=== PATIENT | male | born 1980 | race Caucasian/White ===

== ENCOUNTER 2024-09-14 18:16 | Inpatient (IN) | payer OTHER ==
[~2024-09-14] VITALS: Ht 170.2 cm; Wt 85.3 kg
[2024-09-14] MEDS: KETOROLAC 15MG/ML VIAL IM ONE (21:39)
[2024-09-14] MEDS: TETANUS, DIPHTHERIA, PERTUSSIS VAC/PF 0.5ML (>10YR OLD) IM ONE (21:40)
[2024-09-14 23:28] LABS: BASOPHILS % 0.6 % (0.0-2.0); EOSINOPHILS % 1.5 % (0.0-5.0); HEMATOCRIT. 40.7 % (42.0-52.0); HEMOGLOBIN. 13.7 g/dL (14.0-18.0); LYMPHOCYTES % 30.1 % (20.0-50.0); MEAN PLATELET VOLUME 8.4 fl (7.4-10.4); MONOCYTES % 8.6 % (2.0-8.0); NEUTROPHILS % 59.2 % (40.0-76.0); PLATELET 277 x1000/uL (130-400); RED BLOOD CELL COUNT 4.56 mill/uL (4.7-6.1); RED CELL DISTRIBUTION WIDTH 14.5 % (11.6-14.6)
[2024-09-14 23:38] LABS: CREATININE 1.3 mg/dL (0.6-1.3); UREA NITROGEN BLOOD 18.0 mg/dL (9-23)
[2024-09-14] MEDS: CEFAZOLIN 1000MG PREMIX 50 ML IV ONE (23:59)
[2024-09-15 06:33] VITALS: BP 172/103; PULSE 68; RESP 20; TEMP 36.8628
[2024-09-15 08:00] VITALS: BP_SYST 153; BP_SYST 155; BP_DIAS 67; BP_DIAS 91; PULSE 66; PULSE 79; RESP 16; RESP 18; TEMP 36.3; TEMP 36.7; O2SAT 100; O2SAT 98
[2024-09-15] MEDS ORDERED: ZOLPIDEM TARTRATE 5MG TABLET PO PRN (08:30)
[2024-09-15] MEDS ORDERED: ONDANSETRON HCL 4MG/2ML INJ IV PRN (08:30)
[2024-09-15] MEDS ORDERED: HYDROCODONE/ACETAMINOPHEN 5/325MG TABLET PO PRN (08:30)
[2024-09-15] MEDS ORDERED: IPRATROPIUM/ALBUTEROL 0.5-3(2.5)MG/3ML NEB NEB PRN (08:30)
[2024-09-15] MEDS ORDERED: MAGNESIUM/ALUMINUM HYDROXIDE/SIMETHICONE 30ML UDC PO PRN (08:30)
[2024-09-15] MEDS ORDERED: NALOXONE HCL 0.4MG/ML VIAL IV PRN (08:45)
[2024-09-15] MEDS: PANTOPRAZOLE SODIUM 40 MG/VIAL IV SCH (09:23)
[2024-09-15] MEDS: MORPHINE SULFATE 2 MG/ML INJ (NOT FOR IM USE) IV PRN (09:31)
[2024-09-15] MEDS: CEFTRIAXONE 1GM/50ML 50 ML IV SCH (11:53)
[2024-09-15 12:00] VITALS: BP 168/99; PULSE 66; RESP 18; TEMP 37.1; O2SAT 98
[2024-09-15] MEDS ORDERED: CLONIDINE 0.1MG TABLET PO PRN (13:00)
[2024-09-15] MEDS: CLONIDINE 0.1MG TABLET PO PRN (13:28)
[2024-09-15 16:00] VITALS: BP 139/95; PULSE 69; RESP 20; TEMP 36.9; O2SAT 95
[2024-09-15] MEDS: ACETAMINOPHEN 325MG TABLET PO PRN (18:39)
[2024-09-15 20:00] VITALS: BP 158/89; PULSE 57; RESP 20; TEMP 37; O2SAT 98
[2024-09-16] VITALS: BP 152/98; PULSE 68; RESP 17; TEMP 36.5; O2SAT 98
[2024-09-16 04:00] VITALS: BP_SYST 143; BP_SYST 155; BP_DIAS 95; BP_DIAS 97; PULSE 62; PULSE 64; RESP 16; RESP 18; TEMP 36.4; TEMP 36.6; O2SAT 97; O2SAT 98
[2024-09-16 06:55] LABS: BASOPHILS % 0.4 % (0.0-2.0); EOSINOPHILS % 3.1 % (0.0-5.0); HEMATOCRIT. 42.2 % (42.0-52.0); HEMOGLOBIN. 14.3 g/dL (14.0-18.0); LYMPHOCYTES % 28.4 % (20.0-50.0); MEAN PLATELET VOLUME 9.4 fl (7.4-10.4); MONOCYTES % 8.1 % (2.0-8.0); NEUTROPHILS % 60.0 % (40.0-76.0); PLATELET 255 x1000/uL (130-400); RED BLOOD CELL COUNT 4.67 mill/uL (4.7-6.1); RED CELL DISTRIBUTION WIDTH 14.9 % (11.6-14.6)
[2024-09-16 07:17] LABS: CREATININE 0.9 mg/dL (0.6-1.3)
[2024-09-16 07:18] LABS: UREA NITROGEN BLOOD 15 mg/dL (9-23)
[2024-09-16 08:00] VITALS: BP 154/93; PULSE 75; RESP 18; TEMP 36.5; O2SAT 98
[2024-09-16 08:39] LABS: CLARITY URINE CLEAR (CLEAR); COLOR URINE YELLOW (YELLOW); GLUCOSE URINE NEGATIVE (NEGATIVE); KETONES URINE NEGATIVE (NEGATIVE); LEUKOCYTE ESTERASE URINE NEGATIVE (NEGATIVE); NITRITE URINE NEGATIVE (NEGATIVE); OCCULT BLOOD URINE NEGATIVE (NEGATIVE); PH URINE 5.5 (4.5-8.0); PROTEIN URINE TRACE (NEGATIVE); SPECIFIC GRAVITY URINE 1.030 (1.005-1.030); UROBILINOGEN URINE 0.2 E.U./dL (0.2-1.0)
[2024-09-16 08:54] LABS: MUCUS URINE TRACE /lpf (NONE/TRACE)
[2024-09-16 08:56] LABS: *AMPHETAMINES SCREEN URINE NEGATIVE (NEGATIVE)
[2024-09-16 08:57] LABS: *BARBITURATES SCREEN URINE NEGATIVE (NEGATIVE); *BENZODIAZEPINES SCREEN URINE NEGATIVE (NEGATIVE); *COCAINE SCREEN URINE NEGATIVE (NEGATIVE); CANNABINOID URINE SCREEN NEGATIVE (NEGATIVE); ECSTASY MDMA SCREEN URINE NEGATIVE (NEGATIVE); METHADONE URINE SCREEN NEGATIVE (NEGATIVE); OPIATES URINE SCREEN NEGATIVE (NEGATIVE); PHENCYCLIDINE URINE SCREEN NEGATIVE (NEGATIVE)
[2024-09-16 08:58] LABS: SQUAMOUS EPITHELIAL CELL URINE RARE /lpf (RARE/1+)
[2024-09-16 08:59] LABS: BACTERIA URINE TRACE; RBC URINE 0-2 /hpf (0-2)
[2024-09-16] MEDS ORDERED: LIDOCAINE HCL/EPINEPHRINE 1%-EPI 1:100,000 20ML VIAL INFIL SCH (09:00)
[2024-09-16] MEDS: ENOXAPARIN 40MG/0.4ML SYR SUBCUT SCH (10:15)
[2024-09-16] MEDS ORDERED: IBUP-2030 MT (11:20)
[2024-09-16] MEDS ORDERED: CEPH500T MT (11:20)
[2024-09-16 11:49] VITALS: BP 154/93; PULSE 75; TEMP 97.7; O2SAT 98
== END 2024-09-16 16:17 | disposition home or self-care (01) | DRG 563 ==
LOC: ER 18:16 → EDBEDREQ 09-15 04:15 → ENRESERV 09-15 04:36 → 7WST 09-15 05:37
PROVIDERS: ADMIT Internal Medicine; ATTEND Internal Medicine
PROC: 0HBQXZZ Excision of Finger Nail, External Approach (ICD-10-PCS; principal; 2024-09-16)
DX: S62.525B Nondisplaced fracture of distal phalanx of left thumb, initial encounter for open fracture (principal); S67.02XA Crushing injury of left thumb, initial encounter; R82.71 Bacteriuria; I10 Essential (primary) hypertension; X58.XXXA Exposure to other specified factors, initial encounter; Y93.89 Activity, other specified; Y92.89 Other specified places as the place of occurrence of the external cause; Y99.8 Other external cause status
CPT/HCPCS: 36415; 73130; 80048; 80305; 81003; 85025; 90715; 93970; 99285; J0690; J0696; J1650; J1885; J2004; J2270; J2470